=== PATIENT | female | born 1955 | race Caucasian/White ===

== ENCOUNTER 2023-08-11 17:20 | Emergency (ER) | payer MEDICARE, SELFPAY ==
[2023-08-11] VITALS (18 sets, daily range): BP systolic 140–175; BP diastolic 87–100; PULSE 63–93; RESP 12–23; TEMP 36.9; O2SAT 94–100; BMI 30.8
--- NOTE | 2023-08-11 17:44 | ECG_ITS ---
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
--- NOTE | 2023-08-11 17:45 | ED_ITS ---
HPI - Dizziness General Chief Complaint: Dizziness Stated Complaint: Dizziness, Hypertension Time Seen by Provider: 08/11/23 17:23 Source: patient Mode of arrival: walk-in History of Present Illness HPI Narrative: 67-year-old female presents to the emergency department for dizziness. This started about 45 minutes ago and is better. The patient was getting out of her car when it started. She did not fall. She does not have a headache or localized weakness. Her speech has been normal. Nothing like this has happened before. She believes her blood pressure is high. She has been taking her blood pressure medication Related Data Home Medications Medication Instructions Recorded Confirmed amlodipine 5 mg tablet 5 mg PO DAILY 08/11/23 08/11/23 atorvastatin 10 mg tablet 10 mg PO DAILY 08/11/23 08/11/23 losartan 100 mg tablet 100 mg PO DAILY 08/11/23 08/11/23 Allergies Allergy/AdvReac Type Severity Reaction Status Date / Time No Known Drug Allergies Allergy Verified 08/11/23 17:27 Review of Systems ROS Narrative A ten point review of systems is negative except as noted above. Exam Narrative Exam Narrative: Nurses note and vital signs reviewed and patient is not hypoxic. General: The patient appears well and in no apparent distress. Patient is resting comfortably on cart. Skin: Warm, dry, no pallor noted. There is no rash noted. Head: Normocephalic, atraumatic Eye: Normal conjunctiva, no drainage, EOMI. PERRL Ears, Nose, Mouth, and Throat: oral mucosa is moist. Nares patent. Cardiovascular: Regular Rate and Rhythm Respiratory: Patient is in no distress, no accessory muscle use, lungs are clear to auscultation, no wheezing, rales or rhonchi Back: non-tender GI: Soft and nontender Musculoskeletal: The patient has no evidence of calf tenderness, no pitting edema, symmetrical pulses noted bilaterally Neurological: A&O x4, normal speech; upper and lower extremity strength 5 out of 5 and symmetric. Cranial nerves II through XII intact. Psychiatric: Cooperative Constitutional Vital Signs, click to edit/add: Last Vital Signs Temp 98.5 F 08/11/23 17:25 Pulse 85 08/11/23 18:30 Resp 16 08/11/23 18:30 BP 140/95 H 08/11/23 18:30 Pulse Ox 96 08/11/23 18:30 O2 Del Method Room Air 08/11/23 17:25 Course Vital Signs Vital signs: Vital Signs Temperature 98.5 F 08/11/23 17:25 Pulse Rate 93 H 08/11/23 17:25 Respiratory Rate 18 08/11/23 17:25 Blood Pressure 175/100 H 08/11/23 17:25 Pulse Oximetry 98 08/11/23 17:25 Oxygen Delivery Method Room Air 08/11/23 17:25 Temperature 98.5 F 08/11/23 17:25 Pulse Rate 85 08/11/23 18:30 Respiratory Rate 16 08/11/23 18:30 Blood Pressure 140/95 H 08/11/23 18:30 Pulse Oximetry 96 08/11/23 18:30 Oxygen Delivery Method Room Air 08/11/23 17:25 MDM - Dizziness MDM Narrative Medical decision making narrative: Tests including CAT scan are ordered and the patient is signed out to Dr. Lozano. Differential Diagnosis Differential diagnosis: Likely benign paroxysmal positional vertigo, orthostatic hypotension, cerebrovascular accident and other (Dehydration) Lab Data Labs: Lab Results 08/11/23 Range/Units 17:32 WBC 6.7 (4.0-11.0) 10^3/uL RBC 4.84 (4.20-5.40) 10^6/uL Hgb 12.5 (12.0-16.0) g/dL Hct 40.7 (36.0-48.0) % MCV 84.1 (81.0-99.0) fL MCH 25.8 L (26.7-34.0) pg MCHC 30.7 (29.9-35.2) g/dL RDW 13.2 (11.0-15.0) % Plt Count 279 (150-450) 10^3/uL MPV 9.4 L (9.5-13.5) fL Neut % (Auto) 52.6 (43.0-75.0) % Lymph % (Auto) 36.7 (20.5-60.0) % [place] % (Auto) 7.9 (1.7-12.0) % Eos % (Auto) 2.1 (0.9-7.0) % Baso % (Auto) 0.6 (0.2-2.0) % Neut # (Auto) 3.5 (1.4-6.5) 10^3/uL Lymph # (Auto) 2.5 (1.2-3.8) 10^3/uL [place] # (Auto) 0.5 (0.3-0.8) 10^3/uL Eos # (Auto) 0.1 (0.0-0.7) 10^3/uL Baso # (Auto) 0.0 (0.0-0.1) 10^3/uL Abs Immat Gran (auto) 0.01 (0.00-0.03) 10^3/uL Imm/Tot Granulo (auto) 0.1 (0.0-0.5) % Sodium 143 (136-145) mmol/L Potassium 3.8 (3.5-5.1) mmol/L Chloride 108 H (98-107) mmol/L Carbon Dioxide 25.9 (21.0-32.0) mmol/L Anion Gap 12.9 BUN 12.0 (7.0-18.0) mg/dL Creatinine 0.88 (0.55-1.02) mg/dL Est GFR ( Amer) >60 (>=60) Est GFR (Non-Af Amer) >60 (>=60) BUN/Creatinine Ratio 13.6 Glucose 98 (74-106) mg/dL Calcium 9.4 (8.5-10.1) mg/dL Troponin I High Sens <4.0 L (4.0-51.3) pg/mL Discharge Plan Discharge Patient Disposition: Still a Patient
--- NOTE | 2023-08-11 17:45 | CT_ITS ---
The [address] [address] Patient Name: BORIS KIDD MRN: [id number] date: 1955 Sex: F Assigned Patient Location: ER Current Patient Location: ED.MAIN Accession/Order Number: [id number] Exam Date: 08/11/2023 18:14 Report Date: 08/11/2023 19:01 At the request of: KULWINDER TAPIA Procedure: CT head/brain wo con EXAMINATION: CT head/brain wo con HISTORY: dizzy COMPARISON: None. TECHNIQUE: CT scan of the head was performed without IV contrast. CT dose reduction technique was used, including Automated Exposure Control. FINDINGS: There are no extra-axial fluid collections. There is no mass effect or midline shift. The cerebral ventricles and sulci are normal. The brain demonstrates normal attenuation. Basal cisterns are patent. There is bilateral subcortical and deep periventricular white matter chronic microvascular ischemia. Bilateral orbits, paranasal sinuses and mastoid air cells are patent. No skull base fracture. CT/CT head/brain wo con IMPRESSION: No acute traumatic intracranial process. Electronically authenticated by: SINGH MEDINA Date: 08/11/2023 19:01
[2023-08-11 17:55] LABS: Basophils Percent Auto 0.6 % (0.2-2.0); Eosinophils Absolute Auto 0.1 10^3/uL (0.0-0.7); Eosinophils Percent Auto 2.1 % (0.9-7.0); Hematocrit 40.7 % (36.0-48.0); Hemoglobin 12.5 g/dL (12.0-16.0); Immature Granulocytes Abs Auto 0.01 10^3/uL (0.00-0.03); Immature Granulocytes Pct Auto 0.1 % (0.0-0.5); Lymphocytes Absolute Auto 2.5 10^3/uL (1.2-3.8); Lymphocytes Percent Auto 36.7 % (20.5-60.0); Mean Corpuscular HGB Conc 30.7 g/dL (29.9-35.2); Mean Corpuscular Hemoglobin 25.8 pg (26.7-34.0); Mean Corpuscular Volume 84.1 fL (81.0-99.0); Mean Platelet Volume 9.4 fL (9.5-13.5); Monocytes Absolute Auto 0.5 10^3/uL (0.3-0.8); Monocytes Percent Auto 7.9 % (1.7-12.0); Neutrophils Absolute Auto 3.5 10^3/uL (1.4-6.5); Neutrophils Percent Auto 52.6 % (43.0-75.0); Platelet Count 279 10^3/uL (150-450); Red Blood Count 4.84 10^6/uL (4.20-5.40); Red Cell Distribution Width 13.2 % (11.0-15.0); White Blood Count 6.7 10^3/uL (4.0-11.0)
[2023-08-11 18:12] LABS: Anion Gap 12.9; BUN Creatinine Ratio 13.6; Calcium 9.4 mg/dL (8.5-10.1); Carbon Dioxide 25.9 mmol/L (21.0-32.0); Chloride 108 mmol/L (98-107); Estimated GFR (African America >60 (>=60); Estimated GFR (Non-African Ame >60 (>=60); Glucose 98 mg/dL (74-106); Potassium 3.8 mmol/L (3.5-5.1); Sodium 143 mmol/L (136-145); Troponin I High Sensitivity <4.0 pg/mL (4.0-51.3)
[2023-08-11] MEDS: 0.9 % SODIUM CHLORIDE 1,000 ML 1000 ML IV (19:47)
[2023-08-11 20:55] LABS: Bilirubin Urine NEGATIVE (NEGATIVE); Blood Urine NEGATIVE (NEGATIVE); Clarity Urine CLEAR (CLEAR); Color Urine LT. YELLOW (YELLOW); Glucose Urine UA NEGATIVE (NEGATIVE); Ketones Urine NEGATIVE (NEGATIVE); Leukocyte Esterase Urine MODERATE (NEGATIVE); Nitrite Urine NEGATIVE (NEGATIVE); Protein Urine NEGATIVE (NEG/TRACE); Urobilinogen Urine 0.2 EU/dL (0.2-1.0)
[2023-08-11 21:06] LABS: Bacteria Urine TRACE #/HPF (NONE SEEN); Cast Seen? NONE SEEN #/LPF (NONE SEEN); Crystals Seen? None Seen #/HPF (None Seen); Mucus Urine NONE SEEN (NONE SEEN); RBC Urine 0-2 #/HPF (0-2); Squamous Epithelial Cell Urine FEW #/LPF (NONE/RARE); Transitional Epi Cells Urine RARE #/LPF (NONE SEEN); Urine Culture Indicated YES
--- NOTE | 2023-08-11 21:19 | PC.NURSE ---
Discussed discharge paperwork with pt. All questions answered. Pt verbalized understanding to follow up with her PCP this week and to monitor her blood pressure. Pt ambulated off unit in stable condition.
--- NOTE | 2023-08-15 08:33 | PC.NURSE ---
08/15/[address] matos reviewed pt urine c+s from 08/11/23 no change at this time. Haley Barry RN
--- NOTE | 2023-08-27 01:59 | ED_ITS ---
HPI - Dizziness General Chief Complaint: Dizziness Stated Complaint: Dizziness, Hypertension Time Seen by Provider: 08/11/23 17:23 Source: patient Mode of arrival: walk-in History of Present Illness HPI Narrative: This 67 year old female was signed out to me at shift change. She presents for evaluation of an episode of dizziness when changing positions. At the time of signout she was awaiting CT scan of the brain and labs. Patient was seen and evaluated. She is receiving IV fluids. She denies any headache or dizziness at this time. She denies any slurred speech blurred vision, confusion or focal weakness numbness or tingling. She has not had any fever or cough. She denies any chest pain or shortness of breath. Her blood pressure was mildly elevated. She does have a history of hypertension and is on losartan and amlodipine. Routi ne labs and CT scan of the brain were reviewed. I reviewed her EKG labs and CT scan all of which are normal at this time. This was discussed with the patient. The fact that her blood pressure was elevated and she was changing position she had the episode of dizziness that may be vertigo versus orthostatic changes. This is discussed with the patient and her sewage treatment plant operator is with her at the bedside. She states she is feeling better. She was able to try to the bathroom without additional dizziness and was discharged home to follow up closely with her family physician. Related Data Home Medications Medication Instructions Recorded Confirmed amlodipine 5 mg tablet 5 mg PO DAILY 08/11/23 08/11/23 atorvastatin 10 mg tablet 10 mg PO DAILY 08/11/23 08/11/23 losartan 100 mg tablet 100 mg PO DAILY 08/11/23 08/11/23 Allergies Allergy/AdvReac Type Severity Reaction Status Date / Time No Known Drug Allergies Allergy Verified 08/11/23 17:27 Exam Constitutional Vital Signs, click to edit/add: Last Vital Signs Temp 98.5 F 08/11/23 17:25 Pulse 66 08/11/23 20:20 Resp 13 08/11/23 20:10 BP 161/89 H 08/11/23 20:00 Pulse Ox 99 08/11/23 20:20 O2 Del Method Room Air 08/11/23 17:25 Course Vital Signs Vital signs: Vital Signs Temperature 98.5 F 08/11/23 17:25 Pulse Rate 93 H 08/11/23 17:25 Respiratory Rate 18 08/11/23 17:25 Blood Pressure 175/100 H 08/11/23 17:25 Pulse Oximetry 98 08/11/23 17:25 Oxygen Delivery Method Room Air 08/11/23 17:25 Temperature 98.5 F 08/11/23 17:25 Pulse Rate 66 08/11/23 20:20 Respiratory Rate 13 08/11/23 20:10 Blood Pressure 161/89 H 08/11/23 20:00 Pulse Oximetry 99 08/11/23 20:20 Oxygen Delivery Method Room Air 08/11/23 17:25 MDM - Dizziness MDM Narrative Medical decision making narrative: Please see transfer of care note in HPI Lab Data Labs: Lab Results 08/11/23 08/11/23 Range/Units 17:32 20:30 WBC 6.7 (4.0-11.0) 10^3/uL RBC 4.84 (4.20-5.40) 10^6/uL Hgb 12.5 (12.0-16.0) g/dL Hct 40.7 (36.0-48.0) % MCV 84.1 (81.0-99.0) fL MCH 25.8 L (26.7-34.0) pg MCHC 30.7 (29.9-35.2) g/dL RDW 13.2 (11.0-15.0) % Plt Count 279 (150-450) 10^3/uL MPV 9.4 L (9.5-13.5) fL Neut % (Auto) 52.6 (43.0-75.0) % Lymph % (Auto) 36.7 (20.5-60.0) % [place] % (Auto) 7.9 (1.7-12.0) % Eos % (Auto) 2.1 (0.9-7.0) % Baso % (Auto) 0.6 (0.2-2.0) % Neut # (Auto) 3.5 (1.4-6.5) 10^3/uL Lymph # (Auto) 2.5 (1.2-3.8) 10^3/uL [place] # (Auto) 0.5 (0.3-0.8) 10^3/uL Eos # (Auto) 0.1 (0.0-0.7) 10^3/uL Baso # (Auto) 0.0 (0.0-0.1) 10^3/uL Abs Immat Gran (auto) 0.01 (0.00-0.03) 10^3/uL Imm/Tot Granulo (auto) 0.1 (0.0-0.5) % Sodium 143 (136-145) mmol/L Potassium 3.8 (3.5-5.1) mmol/L Chloride 108 H (98-107) mmol/L Carbon Dioxide 25.9 (21.0-32.0) mmol/L Anion Gap 12.9 BUN 12.0 (7.0-18.0) mg/dL Creatinine 0.88 (0.55-1.02) mg/dL Est GFR ( Amer) >60 (>=60) Est GFR (Non-Af Amer) >60 (>=60) BUN/Creatinine Ratio 13.6 Glucose 98 (74-106) mg/dL Calcium 9.4 (8.5-10.1) mg/dL Troponin I High Sens <4.0 L (4.0-51.3) pg/mL Urine Color Lt. yellow (YELLOW) Urine Clarity Clear (CLEAR) Urine pH 6.0 (5.0-9.0) Ur Specific [place] 1.010 (1.005-1.025) Urine Protein Negative (NEG/TRACE) mg/dL Urine Glucose (UA) Negative (NEGATIVE) mg/dL Urine Ketones Negative (NEGATIVE) mg/dL Urine Occult Blood Negative (NEGATIVE) Urine Nitrite Negative (NEGATIVE) Urine Bilirubin Negative (NEGATIVE) Urine Urobilinogen 0.2 (0.2-1.0) EU/dL Ur Leukocyte Esterase Moderate A (NEGATIVE) Urine RBC 0-2 (0-2) #/HPF Urine WBC 5-10 A (NONE SEEN) #/HPF Ur Squamous Epith Cells Few A (NONE/RARE) #/LPF Ur Transition Epith Cell Rare A (NONE SEEN) #/LPF Urine Crystals None seen (None Seen) #/HPF Urine Bacteria Trace A (NONE SEEN) #/HPF Urine Casts None seen (NONE SEEN) #/LPF Urine Mucus None seen (NONE SEEN) Ur Culture Indicated? Yes Discharge Plan Discharge Chief Complaint: Dizziness Clinical Impression: Dizziness, Hypertension Patient Disposition: Home, Self-Care Time of Disposition Decision: 21:10 Condition: Good Prescriptions / Home Meds: No Action amlodipine 5 mg tablet 5 mg PO DAILY atorvastatin 10 mg tablet 10 mg PO DAILY losartan 100 mg tablet 100 mg PO DAILY Instructions: Vertigo (ED), Chronic Hypertension (DC), DASH Eating Plan (ED), Hypertension (ED), Lightheadedness (ED), Dizziness (ED) Referrals: NONA AGUIRRE [Primary Care Provider] - 1 week Discharge Date/Time: 08/11/23 21:20 Stand Alone Forms: Portal Instructions
== END 2023-08-11 21:20 | disposition home or self-care (01) ==
PROVIDERS: Emergency Medicine; Emergency Provider Emergency Medicine; PCP Family Medicine
DX: R42 Dizziness and giddiness (principal); I10 Essential (primary) hypertension; Z79.899 Other long term (current) drug therapy
CPT/HCPCS: 36415; 70450; 80048; 81001; 84484; 85025; 87086; 87150; 87186; 93005; 99285